=== PATIENT | male | born 1990 | race Caucasian/White ===

== ENCOUNTER → 2024-08-24 08:40 | Outpatient (CLI) | payer OTHER, SELFPAY ==
--- NOTE | 2024-08-24 08:43 | DI.CT.S_ITS ---
PROCEDURE: CT SINUS SCREEN WO CON INDICATIONS: Chronic pansinusitis. Current smokeless tobacco use TECHNIQUE: Noncontrast 3.0 mm axial images acquired from the frontal sinuses to the mid-sella, with coronal and sagittal reformats. For radiation dose reduction, the following was used: automated exposure control, adjustment of mA and/or kV according to patient size. COMPARISON: None. FINDINGS: Maxillary Sinuses: Right maxillary sinus mucosal thickening measures up to 5 mm. No osseous remodeling. Ethmoid Air Cells: Mild mucosal thickening in a posterior right ethmoid air cell. Remainder of the air cells clear. No remodeling. Sphenoid Sinuses: No bony remodeling or destruction. Sinuses are clear. Frontal Sinuses: No bony remodeling or destruction. Sinuses are clear. Ostiomeatal Complexes: Ostiomeatal complexes are patent. No Annmarie cells. Miscellaneous: Visualized intra-orbital contents are normal. No loulou bullosa or paradoxical turbinate curvature. No nasal septal deviation. Focal foreign body between the maxillary alveolar ridge and upper lip centrally consistent with given history of current smokeless tobacco use IMPRESSION: Mild right maxillary sinus mucosal thickening. No osseous remodeling throughout the exam. Approved by: Tyler Karimi M.D. on 08/24/2024 at 16:59
== END ==
PROVIDERS: Referring Provider Otolaryngology; Visit Provider Otolaryngology
DX: J01.41 Acute recurrent pansinusitis (principal); J32.4 Chronic pansinusitis; R44.8 Other symptoms and signs involving general sensations and perceptions
CPT/HCPCS: 70486

== ENCOUNTER 2024-09-11 10:56 | Day surgery (SDC) | payer OTHER, SELFPAY ==
[2024-08-31 15:04] VITALS: BMI 29.2
[2024-09-11] VITALS (9 sets, daily range): BP systolic 122–148; BP diastolic 76–109; PULSE 68–90; RESP 9–19; TEMP 36.1–36.4; O2SAT 94–99; BMI 28.3
[2024-09-11] MEDS: OXYMETAZOLINE NASAL SPRAY 30 ML 2 SPRAYS NASAL ×2 (11:14→13:06)
[2024-09-11] MEDS: SCOPOLAMINE 1 PATCH TOP (11:16)
[2024-09-11] MEDS: LACTATED RINGERS 1,000 ML 42 ML IV (11:32)
[2024-09-11] MEDS: FAMOTIDINE 20 MG/2 ML VIAL IV (11:32)
--- NOTE | 2024-09-11 12:13 | P.OP_ITS ---
Operative Date/Time/Diagnoses Date of procedure: 09/11/24 Time of procedure: 13:49 Pre-op diagnosis: Nasal airway obstruction, septal deviation, inferior turbinate hypertrophy, PHUONG Post-op diagnosis: same Procedure & Clinicians Procedure: 1. Septoplasty 2. Bilateral inferior turbinate reduction via intramural cautery Same procedure as scheduled: Yes Indications: 34 Year old with the above diagnoses incompletely managed with medical therapy presents for the above procedure. Following discussion of the material risks benefits complications and alternatives, the patient elected to proceed. Surgeon: Tristen Issa Click Yes if Unassisted: Yes Anesthesia Type: General and Local Operative Notes Findings: Right 2 to 3+ septal deviation, bony and cartilaginous sharp spur extending low anterior to high posterior, partial right flap tear in that area only, left flap intact. 1-2+ left superior anterior cartilaginous septal deviation, improved. Evzs-[id number]-zawc-right inferior turbinate hypertrophy. Estimated Blood Loss (mL): 20 Procedure in detail: Following identification and confirmation of consent as well as preoperative Afrin nasal spray, the patient was brought to the operating room suite and placed in the supine position. General endotracheal anesthesia was administered. I infiltrated the septum widely bilaterally with 1% lidocaine 1 100,000 epinephrine followed by temporary packing with cotton with Afrin and 4% lidocaine. Following sterile prep and drape, the packing was removed and I performed a right william-transfixion incision, elevated the right mucoperichondrial and mucoperiosteal flap. I disarticulated near the bony/cartilaginous junction and elevated the left mucoperiosteal flap. Deviated portions of the perpendicular plate of the ethmoid and vomer were resected. The residual quadrilateral cartilage was further straightened by trimming it inferiorly as well as reducing the maxillary crest. A 2 mm strip of cartilage paralleling the residual 1 cm dorsal and caudal strut was resected to further straighten the quadrilateral cartilage. The hemitransfixion incision was closed with interrupted 5 0 chromic followed by a running 4 0 plain gut mattress suture to reapproximate the septal flaps. At case completion, Corbett air channel silastic splints were placed bilaterally, sutured anteriorly with a single 4 0 nylon. The head of each inferior turbinate had been previously infiltrated with additional local anesthetic and a 25 gauge spinal needle was used to impale the length of the turbinate, with cautery on a setting of 15 activated on slow withdrawal over 2 passes on the left, a single pass on the smaller right inferior turbinate. The turbinates were then outfractured. The procedure completed, sponge and needle counts were correct and the patient was extubated in the operating room and taken to recovery room in stable condition without known complication. Postoperative care: Nasal saline every hour while awake, Vaseline or Polysporin to the nostrils at all times, begin irrigations t.i.d. beginning pod 1. Humidifier at the bedside blowing on the face. Tylenol alternating with Advil for pain control, oxycodone if necessary for breakthrough pain. Complications: none Post-operative Condition: stable Disposition: same day surgery Plan for aftercare: Nasal saline every hour while awake, begin irrigations t.i.d. tomorrow if desired. Polysporin or Vaseline to the nostrils at all times, Tylenol alternating with Advil for pain control, oxycodone for breakthrough pain. Elevate head of bed, no nose blowing, no straining for 2 weeks. Ice directly under the nose on the upper lip has tolerated 24-48 hours at a minimum. Follow- up in 1 week for nasal splint removal.
--- NOTE | 2024-09-11 12:13 | PM.PREOP ---
Pre-operative Note Interval Note History & Physical reviewed/Exam performed by Physician: Yes Changes to H&P: No
[2024-09-11] MEDS: ACETAMINOPHEN IV 1,000 MG/100 ML VIAL 400 MG IV (13:02)
[2024-09-11] MEDS: LIDOCAINE 4% SOLN 50 ML 20 ML TOP (13:07)
[2024-09-11] MEDS: LIDOCAINE 1% W/EPI 10ML 20 ML INJ (13:09)
[2024-09-11] MEDS: BACITRACIN 28 GM OINT 1 APPLIC TOP (13:09)
--- NOTE | 2024-09-11 13:25 | SUR.OPER ---
Supine on padded OR bed, head on gel doughnut , arms padded and tucked at sides, legs uncrossed, safety belt at thigh, tape over blanket over lower legs .
[2024-09-11] MEDS: hydrOXYzine 50 MG/ML INJ IM (14:33)
[2024-09-11] MEDS: OXYCODONE IR 5 MG TABLET PO ×2 (14:33→15:01)
== END 2024-09-11 15:18 | disposition home or self-care (01) ==
PROVIDERS: Referring Provider Otolaryngology; Visit Provider Otolaryngology
PROC: (CPT 30520; principal; 2024-09-11 12:00)
DX: J34.2 Deviated nasal septum (principal); J34.3 Hypertrophy of nasal turbinates; J34.89 Other specified disorders of nose and nasal sinuses; G47.33 Obstructive sleep apnea (adult) (pediatric)
CPT/HCPCS: 30520; 30802; J0131; J0330; J1100; J2250; J2405; J2704; J3010; J3410

== ENCOUNTER 2024-09-13 02:06 | Emergency (ER) | payer OTHER, SELFPAY ==
[2024-09-13 02:14] VITALS: BP 124/81; PULSE 123; RESP 20; TEMP 37.7; O2SAT 100; BMI 27.3
--- NOTE | 2024-09-13 02:29 | ED.GENADULT ---
HPI - General Adult General Chief complaint: Recheck/Abnormal Lab/Rx Stated complaint: Post Op Problem, Fever Time Seen by Provider: 09/13/24 02:10 History of Present Illness HPI narrative: 34-year-old male had septoplasty surgery yesterday by local name plate stamper Dr. Issa, completion of the procedure about 2:00 p.m., has been at home taking oxycodone, has increasing headache and feeling feverish. No neck pain or stiffness. No photophobia. Increasing facial pain and swelling. You apparently called the on-call name plate stamper who advised evaluation in the emergency department. Related Data Home Medications Medication Instructions Recorded Confirmed cholecalciferol (vitamin D3) 25 25 mcg PO DAILY 08/31/24 09/11/24 mcg (1,000 unit) capsule (Vitamin D3) Previous Rx's Medication Instructions Recorded amoxicillin 875 mg-potassium 1 tab PO BID #20 tabs 09/13/24 clavulanate 125 mg tablet Allergies Allergy/AdvReac Type Severity Reaction Status Date / Time No Known Drug Allergies Allergy Verified 09/11/24 11:09 Patient History Medical History (Updated 09/13/24 @ 04:12 by Nakul Bajwa MD) Recurrent pansinusitis PHUONG (obstructive sleep apnea) Surgical History (Updated 09/13/24 @ 04:12 by Nakul Bajwa MD) Hx of vasectomy (2022) Social History household members: spouse Smoking Status: Former smoker alcohol intake: current Exam Narrative Exam Narrative: GENERAL: Well-developed patient, in mild distress. HEAD: Atraumatic. Normocephalic. EYES: Pupils equal round and reactive. Extraocular motions intact. No scleral icterus. No injection or drainage. ENT: Inferonasal tape strip in place without bleeding saturation, nasal pledgets in place. Nasal swelling noted. Throat without erythema, tonsillar hypertrophy or exudate. Airway patent. NECK: Trachea midline. Non tender CARDIOVASCULAR: Regular rate and rhythm without murmurs, gallops, or rubs. RESPIRATORY: Clear to auscultation. Breath sounds equal bilaterally. No wheezes, rales, or rhonchi. GASTROINTESTINAL: Abdomen soft, non-tender, nondistended. EXTREMITIES: No edema or joint tenderness. BACK: Nontender without deformity or crepitance. No flank tenderness. NEURO: AOx3. Motor functions grossly nonfocal SKIN: No rash or erythema of visible areas Initial Vital Signs Initial Vital Signs: Vital Signs Temperature 99.8 F H 09/13/24 02:14 Pulse Rate 123 H 09/13/24 02:14 Respiratory Rate 20 09/13/24 02:14 Blood Pressure 124/81 09/13/24 02:14 Pulse Oximetry 100 09/13/24 02:14 Oxygen Delivery Method Room Air 09/13/24 02:14 Course Orders Ordered: ED Orders 09/13/24 02:38 CT sinus w con Stat CBC Auto Diff [Complete Blood Count AUTO DIFF] Stat CMP [Comprehensive Metabolic Panel] Stat Lactate (Lactic Acid) Stat 09/13/24 02:39 CT head/brain w con Stat 09/13/24 03:27 Blood Culture Stat Discontinued Medications Hydromorphone HCl (Hydromorphone 0.5 Mg Inj) 0.5 mg IV NOW ONE Stop: 09/13/24 03:38 Last Admin: 09/13/24 03:45 Dose: 0.5 mg Documented By: JOSELUIS Sodium Chloride (Normal Saline 0.9%) 1,000 mls @ 1,000 mls/hr IV BOLUS ONE Stop: 09/13/24 03:40 Last Infusion: 09/13/24 04:15 Dose: Infused Documented By: Admin: 09/13/24 02:53 Dose: 1,000 mls/hr Documented By: JOSELUIS Ceftriaxone Sodium 1,000 mg/ (Sodium Chloride) 100 mls @ 200 mls/hr IV NOW ONE Stop: 09/13/24 03:28 Last Infusion: 09/13/24 04:15 Dose: Infused Documented By: Admin: 09/13/24 03:32 Dose: 200 mls/hr Documented By: JOSELUIS Ondansetron HCl (Ondansetron 4 Mg/2 Ml Inj) 4 mg IV NOW ONE Stop: 09/13/24 03:38 Last Admin: 09/13/24 03:44 Dose: 4 mg Documented By: JOSELUIS Vital Signs Vital signs: Vital Signs - 8 hr 09/13/24 02:14 09/13/24 02:57 09/13/24 03:00 Temperature 99.8 F H 101.3 F H Pulse Rate 123 H 105 H 103 H Respiratory Rate 20 22 17 Blood Pressure 124/81 119/79 Pulse Oximetry 100 98 99 Oxygen Delivery Method Room Air Room Air 09/13/24 03:00 09/13/24 03:30 09/13/24 03:41 Temperature Pulse Rate 110 H Respiratory Rate 16 Blood Pressure 131/80 130/77 Pulse Oximetry 98 Oxygen Delivery Method 09/13/24 03:41 09/13/24 04:00 09/13/24 04:00 Temperature Pulse Rate 110 H 114 H Respiratory Rate 18 18 Blood Pressure 132/77 Pulse Oximetry 97 95 Oxygen Delivery Method Medical Decision Making Lab Data Lab results reviewed: Yes I reviewed the patient's lab results. Lab results narrative: White blood cell count 44012, hemoglobin 14.7, platelets adequate. Glucose 154. Renal function normal. Electrolytes unremarkable. T bili 1.4 slight elevation, other liver functions unremarkable. 09/13/24 02:38 09/13/24 02:38 Labs: Lab Results 09/13/24 Range/Units 02:38 WBC 11.8 H (4.5-11.0) X10^3/uL RBC 4.99 (4.5-5.9) X10^6/uL Hgb 14.7 (13.5-17.5) g/dL Hct 42.9 (41-53) % MCV 85.9 (80-100) fL MCH 29.5 (26-34) PG MCHC 34.3 (30-36) % RDW 13.3 (11.6-14.8) % Plt Count 222 (150-400) X10^3/uL Neut % (Auto) 90.4 H (50-75) % Lymph % (Auto) 3.9 L (25-40) % Johnson % (Auto) 5.4 (3-14) % Eos % (Auto) 0.1 L (2-4) % Baso % (Auto) 0.2 (0-2) % Neut # (Auto) 91444 H (2107-7557) /uL Lymph # (Auto) 500 L (5753-7510) /uL Johnson # (Auto) 600 (0-900) /uL Eos # (Auto) 0 (0-450) /uL Baso # (Auto) 0 (0-100) /uL Sodium 141 (137-145) mmol/L Potassium 3.9 (3.4-5.1) mmol/L Chloride 104 (98-107) mmol/L Carbon Dioxide 27 (22-32) mmol/L BUN 11 (9-20) mg/dL Creatinine 1.13 (0.66-1.25) mg/dL Estimated GFR > 60 (>60) mL/min BUN/Creatinine Ratio 9.7 (6-22) Glucose 154 H (70-99) mg/dL Lactate 1.8 (0.7-2.1) mmol/L Calcium 8.8 (8.4-10.2) mg/dL Total Bilirubin 1.4 H (0.2-1.3) mg/dL AST 33 (17-59) IU/L ALT 26 (<50) IU/L Alkaline Phosphatase 64 (38-126) U/L Total Protein 7.2 (6.3-8.2) g/dL Albumin 4.7 (3.5-5.0) g/dL Globulin 2.5 (1.7-4.1) g/dL Albumin/Globulin Ratio 1.9 (1.0-2.8) MDM Narrative Medical decision making narrative: 34-year-old male status post nasal septoplasty yesterday with increasing headache and facial pain, feeling feverish, was referred in for further evaluation by otolaryngology. Reported fever and tachycardia. Increased heart rate noted. IV fluids, labs pending. CT head and sinus with IV contrast ordered. CT head study with IV contrast. Impressions: ?No acute intracranial findings.In text there is mention of absence of dural venous thrombosis. See tele radiology report. CT sinus study with IV contrast. Impressions: ?No abscess. Post surgical changes as detailed, with mild mucoperiosteal thickening of the ethmoid air cells and trace fluid within the maxillary sinuses.? See tele radiology report IV ceftriaxone given for sinusitis coverage. For discharge patient on Augmentin, prescription sent to his pharmacy. Patient advised to call the office of his name plate stamper Dr. Issa tomorrow Saturday during regular hours. Return precautions discussed. Home with family. Discharge Plan Departure Patient Disposition: Home Clinical Impression: Sinusitis, Status post nasal septoplasty Activity Restrictions/Additional Instructions: History of recent sinus septoplasty and turbinate procedure. Subsequent fevers and increasing headache pain. Fever noted on triage. CT head brain showed no intracranial process of concern, possible ethmoid sinusitis changes. CT sinus study showed no abscess or active bleeding, possible ethmoid sinusitis changes. IV ceftriaxone antibiotic given for possible sinusitis. We will give prescription for Augmentin antibiotic for treatment of possible sinusitis. It is possible that the ethmoid changes are only postoperative changes, might not necessarily represent acute sinus infection, however you do seemed to have increasing headache in sinus pain, with objective fever, that is not otherwise explained. We will cover for sinusitis with antibiotics for now. Please contact your otolaryngology surgeon on Saturday during regular hours to see if earlier follow up appointment would be warranted. Return earlier to this/nearest emergency department for any change worsening symptoms or any concerns prior. Prescriptions: New amoxicillin-pot clavulanate 875-125 mg tablet 1 tab PO BID Qty: 20 0RF No Action cholecalciferol (vitamin D3) [Vitamin D3] 25 mcg (1,000 unit) Capsule 25 mcg PO DAILY Referrals: ProviderMiya [Primary Care Provider] - Stand Alone Forms: Patient Portal/API/Survey
--- NOTE | 2024-09-13 02:38 | DI.CT.S_ITS ---
PROCEDURE: CT SINUS W CON INDICATIONS: post septoplasty, fevers, tachy TECHNIQUE: After the administration of intravenous contrast, 3.0 mm axial images acquired from the frontal sinuses to the mid-sella, with coronal and sagittal reformats. For radiation dose reduction, the following was used: automated exposure control, adjustment of mA and/or kV according to patient size. COMPARISON: None. FINDINGS: Image quality: Excellent. Maxillary Sinuses: Trace dependent fluid levels in both maxillary sinuses, symmetric, presumably postoperative. Minor mucoperiosteal thickening inferiorly in both maxillary sinuses. No bony abnormality. Ethmoid Air Cells: Mild mucoperiosteal thickening anteriorly and centrally. No bony destruction or abscess formation. Sphenoid Sinuses: No bony remodeling or destruction. Sinuses are clear. Frontal Sinuses: No bony remodeling or destruction. Sinuses are clear. Ostiomeatal Complexes: Ostiomeatal complexes are patent. No Annmarie cells. Miscellaneous: Mild diffuse soft tissue thickening in the nasal passages. Splint material in place around the septum. No evidence of fluid collection. Mild thickening of the adenoid soft tissues. No significant hyperemia. No dependent fluid collections. Parapharyngeal fat planes are normally preserved. Opacified vasculature appears normal and symmetric. IMPRESSION: Post septoplasty with expected changes and no evidence of postsurgical complication or abscess formation. Final interpretation is concordant with preliminary report. Dictated by: Maty Salazar M.D. on 09/13/2024 at 7:04 Approved by: Maty Salazar M.D. on 09/13/2024 at 7:08
--- NOTE | 2024-09-13 02:39 | DI.CT.S_ITS ---
PROCEDURE: CT HEAD/BRAIN W CON INDICATIONS: septoplasty, fever, tachy, eval for abscess TECHNIQUE: 4.5 mm thick angled axial sections acquired from the foramen magnum to the vertex after the administration of intravenous contrast, with coronal and sagittal reformats. For radiation dose reduction, the following was used: automated exposure control, adjustment of mA and/or kV according to patient size. COMPARISON: None. FINDINGS: Image quality: Excellent. CSF Spaces: Basal cisterns are patent. No extra-axial fluid collections. Ventricles are normal in size and shape. Brain: No midline shift. No intracranial bleeds or masses. No abnormal intracranial enhancement. Hamilton-white interface appears normal. Skull and face: Calvarium and visualized facial bones appear intact, without suspicious lesions. Sinuses: Trace fluid dependently in the maxillary sinuses. Mucoperiosteal thickening in the ethmoid air cells.. Nasal septum splint material in place. IMPRESSION: No CT evidence of acute intracranial process. Final interpretation is concordant with preliminary report. Dictated by: Maty Salazar M.D. on 09/13/2024 at 7:02 Approved by: Maty Salazar M.D. on 09/13/2024 at 7:04
[2024-09-13 02:50] LABS: Add Manual Diff / Slide Review NO; Basophils Absolute Auto 0 /uL (0-100); Basophils Percent Auto 0.2 % (0-2); Eosinophils Absolute Auto 0 /uL (0-450); Eosinophils Percent Auto 0.1 % (2-4); Hematocrit 42.9 % (41-53); Hemoglobin 14.7 g/dL (13.5-17.5); Lymphocytes Absolute Auto 500 /uL (1100-4500); Lymphocytes Percent Auto 3.9 % (25-40); Mean Corpuscular HGB Conc 34.3 % (30-36); Mean Corpuscular Hemoglobin 29.5 PG (26-34); Mean Corpuscular Volume 85.9 fL (80-100); Monocytes Absolute Auto 600 /uL (0-900); Monocytes Percent Auto 5.4 % (3-14); Neutrophils Absolute Auto 10700 /uL (1500-7000); Neutrophils Percent Auto 90.4 % (50-75); Platelet Count 222 X10^3/uL (150-400); Red Blood Cell Count 4.99 X10^6/uL (4.5-5.9); Red Cell Distribution Width 13.3 % (11.6-14.8); White Blood Cell Count 11.8 X10^3/uL (4.5-11.0)
[2024-09-13] MEDS: SODIUM CHLORIDE 0.9% 1,000 ML 1000 ML IV (02:53)
[2024-09-13 02:57] VITALS: BP 119/79; PULSE 105; RESP 22; TEMP 38.5; O2SAT 98
[2024-09-13 03:00] VITALS: BP 131/80; PULSE 103; RESP 17; O2SAT 99
[2024-09-13 03:02] LABS: Alanine Aminotransferase 26 IU/L (<50); Albumin 4.7 g/dL (3.5-5.0); Albumin Globulin Ratio 1.9 (1.0-2.8); Alkaline Phosphatase 64 U/L (38-126); Aspartate Aminotransferase 33 IU/L (17-59); BUN Creatinine Ratio 9.7 (6-22); Bilirubin Total 1.4 mg/dL (0.2-1.3); Blood Urea Nitrogen 11 mg/dL (9-20); Calcium 8.8 mg/dL (8.4-10.2); Carbon Dioxide 27 mmol/L (22-32); Chloride 104 mmol/L (98-107); Estimated Glomerular Filt Rate > 60 mL/min (>60); Globulin 2.5 g/dL (1.7-4.1); Glucose 154 mg/dL (70-99); HEMOLYSIS < 15 (0-50); Lactate (Lactic Acid) 1.8 mmol/L (0.7-2.1); Potassium 3.9 mmol/L (3.4-5.1); Sodium 141 mmol/L (137-145); Total Protein 7.2 g/dL (6.3-8.2)
[2024-09-13 03:30] VITALS: PULSE 110; RESP 16; O2SAT 98
[2024-09-13] MEDS: cefTRIAXone 1,000 MG in SODIUM CHLORIDE 0.9% 100 ML 200 MG IV (03:32)
[2024-09-13 03:41] VITALS: BP 130/77; PULSE 110; RESP 18; O2SAT 97
[2024-09-13] MEDS: ONDANSETRON 4 MG/2 ML INJ IV (03:44)
[2024-09-13] MEDS: HYDROMORPHONE 0.5 MG INJ IV (03:45)
[2024-09-13 04:00] VITALS: BP 132/77; PULSE 114; RESP 18; O2SAT 95
== END 2024-09-13 04:31 | disposition home or self-care (01) ==
PROVIDERS: Emergency Provider Emergency Medicine
DX: J32.9 Chronic sinusitis, unspecified (principal); R00.0 Tachycardia, unspecified; Z98.890 Other specified postprocedural states; Z87.891 Personal history of nicotine dependence
CPT/HCPCS: 36415; 70460; 70487; 80053; 83605; 85025; 87040; 87077; 87186; 96361; 96365; 96375; 99284; J0696; J1171; J2405; Q9967

== ENCOUNTER 2024-09-14 10:58 | Emergency (ER) | payer OTHER, SELFPAY ==
[2024-09-14] VITALS (7 sets, daily range): BP systolic 119–131; BP diastolic 77–91; PULSE 73–101; RESP 10–17; TEMP 36.6; O2SAT 93–98; BMI 27.3
--- NOTE | 2024-09-14 11:09 | ED.URI ---
HPI - URI/Sore Throat General Chief Complaint: Recheck/Abnormal Lab/Rx Stated Complaint: Sinus pain after Surgery x 3 days Time Seen by Provider: 09/14/24 11:07 History of Present Illness HPI Narrative: Patient is a 34-year-old male had septoplasty on September [address] Issa was seen and evaluated here on the night of September all tense for increased pain. He was taking some oxycodone he had a white count of 11 has 1 of 2 positive blood cultures. Still having fever body aches and chills. Generally not feeling well. He did call ENT office who recommended he come to the ED. he actually had positive blood cultures less than 24 hours after surgery. Related Data Home Medications Medication Instructions Recorded Confirmed cholecalciferol (vitamin D3) 25 25 mcg PO DAILY 08/31/24 09/11/24 mcg (1,000 unit) capsule (Vitamin D3) Previous Rx's Medication Instructions Recorded amoxicillin 875 mg-potassium 1 tab PO BID #20 tabs 09/13/24 clavulanate 125 mg tablet hydrocodone 5 mg-acetaminophen 325 1 tab PO Q6H PRN pain #10 tabs 09/14/24 mg tablet Allergies Allergy/AdvReac Type Severity Reaction Status Date / Time No Known Drug Allergies Allergy Verified 09/11/24 11:09 Patient History Medical History Recurrent pansinusitis PHUONG (obstructive sleep apnea) Surgical History Hx of vasectomy (2022) Social History household members: spouse alcohol intake: current tobacco type: cigarettes Alcohol type: beer and wine Exam Initial Vital Signs Initial Vital Signs: Vital Signs Pulse Rate 101 H 09/14/24 11:09 Blood Pressure 131/91 H 09/14/24 11:09 Pulse Oximetry 97 09/14/24 11:09 Alert nontoxic well-appearing 34-year-old male HEENT: Head atraumatic,EOMI, pupils reactive, face symmetric, [moist] mucous membranes [Tympanic membranes visualized, no erythema or bulging, no hemotympanum CARDIOVASCULAR: Regular rate and rhythm without murmurs, rubs or gallops. RESPIRATORY: Breath sounds equal bilaterally, no wheezes rales or rhonchi. EXTREMITIES: Normal range of motion, no clubbing or edema. Neurovascularly intact NEUROLOGICAL: Alert and oriented x4.Normal gait and speech. SKIN: Warm, dry, no laceration, no petechiae, no rashes or lesions. Course Orders Ordered: ED Orders 09/14/24 11:24 Blood Culture Stat Complete Blood Count AUTO DIFF Stat Comprehensive Metabolic Panel Stat Lactate (Lactic Acid) Stat Lipase Stat PTT Partial Thromboplastin Benjy Stat Procalcitonin Stat Prothrombin Time INR Stat Discontinued Medications Dexamethasone (Dexamethasone 10 Mg/Ml Vial) 10 mg IV NOW ONE Stop: 09/14/24 12:05 Last Admin: 09/14/24 12:42 Dose: 10 mg Documented By: TOVA Sodium Chloride (Normal Saline 0.9%) 1,000 mls @ 1,000 mls/hr IV BOLUS ONE Stop: 09/14/24 12:19 Last Infusion: 09/14/24 12:37 Dose: Infused Documented By: Admin: 09/14/24 11:37 Dose: 1,000 mls/hr Documented By: TOVA Ceftriaxone Sodium 1,000 mg/ (Sodium Chloride) 100 mls @ 200 mls/hr IV NOW ONE Stop: 09/14/24 11:41 Last Infusion: 09/14/24 12:37 Dose: Infused Documented By: Admin: 09/14/24 11:49 Dose: 200 mls/hr Documented By: TOVA Ketorolac Tromethamine (Ketorolac 30 Mg/Ml Vial) 15 mg IV NOW ONE Stop: 09/14/24 13:13 Last Admin: 09/14/24 13:21 Dose: 15 mg Documented By: TOVA Ondansetron HCl (Ondansetron 4 Mg/2 Ml Inj) 4 mg IV NOW PRN PRN Reason: Nausea And Vomiting Ondansetron HCl (Ondansetron 4 Mg Odt) 4 mg PO NOW PRN PRN Reason: Nausea And Vomiting Vital Signs Vital signs: Vital Signs - 8 hr 09/14/24 11:09 09/14/24 11:09 09/14/24 11:10 Temperature 98 F Pulse Rate 101 H 95 H Respiratory Rate 17 Blood Pressure 131/91 H 131/91 H Pulse Oximetry 97 98 Oxygen Delivery Method Room Air 09/14/24 11:30 09/14/24 11:36 09/14/24 11:36 Temperature Pulse Rate 81 73 Respiratory Rate 10 L Blood Pressure 119/77 Pulse Oximetry 93 96 Oxygen Delivery Method 09/14/24 12:00 09/14/24 12:00 09/14/24 12:30 Temperature Pulse Rate 80 83 Respiratory Rate 13 13 Blood Pressure 126/89 Pulse Oximetry 97 97 Oxygen Delivery Method 09/14/24 12:30 09/14/24 13:00 Temperature Pulse Rate 89 Respiratory Rate 15 Blood Pressure 119/86 Pulse Oximetry 98 Oxygen Delivery Method MDM - URI/Sore Throat Lab Data 09/14/24 11:24 09/14/24 11:24 Labs: Lab Results 09/14/24 Range/Units 11:24 WBC 8.5 (4.5-11.0) X10^3/uL RBC 4.87 (4.5-5.9) X10^6/uL Hgb 14.3 (13.5-17.5) g/dL Hct 41.3 (41-53) % MCV 84.8 (80-100) fL MCH 29.4 (26-34) PG MCHC 34.7 (30-36) % RDW 13.2 (11.6-14.8) % Plt Count 171 (150-400) X10^3/uL Neut % (Auto) 84.4 H (50-75) % Lymph % (Auto) 8.9 L (25-40) % [place] % (Auto) 6.1 (3-14) % Eos % (Auto) 0.2 L (2-4) % Baso % (Auto) 0.4 (0-2) % Neut # (Auto) 7200 H (2890-4678) /uL Lymph # (Auto) 800 L (1910-9186) /uL [place] # (Auto) 500 (0-900) /uL Eos # (Auto) 0 (0-450) /uL Baso # (Auto) 0 (0-100) /uL PT 12.8 H (9.4-12.5) SECONDS INR 1.1 (0.9-1.3) APTT 37 H (25.1-36.5) SECONDS Sodium 137 (137-145) mmol/L Potassium 3.5 (3.4-5.1) mmol/L Chloride 104 (98-107) mmol/L Carbon Dioxide 23 (22-32) mmol/L BUN 13 (9-20) mg/dL Creatinine 1.00 (0.66-1.25) mg/dL Estimated GFR > 60 (>60) mL/min BUN/Creatinine Ratio 13.0 (6-22) Glucose 114 H (70-99) mg/dL Lactate 0.6 L (0.7-2.1) mmol/L Calcium 8.8 (8.4-10.2) mg/dL Total Bilirubin 1.8 H (0.2-1.3) mg/dL AST 34 (17-59) IU/L ALT 23 (<50) IU/L Alkaline Phosphatase 56 (38-126) U/L Total Protein 7.3 (6.3-8.2) g/dL Albumin 4.5 (3.5-5.0) g/dL Globulin 2.8 (1.7-4.1) g/dL Albumin/Globulin Ratio 1.6 (1.0-2.8) Lipase 51 (23-300) U/L Procalcitonin 0.318 (<0.5) ng/mL MDM Narrative Medical decision making narrative: Patient 34-year-old male who had septoplasty done on September 11 with 1 of 2 Gram-positive blood cultures presenting today with ongoing fever chills and pain. He overall appears well nontoxic. Blood work has been reviewed WBCs 8.5 lactate 0.6 Procalcitonin 0.318 Electrolytes within normal limits no anemia Patient overall appears well nontoxic. I think abnormal to have postoperative bacteremia with fever and positive got blood cultures less than 24 hours after procedure. Possible other viral etiology. Nonetheless patient received IV fluids and a dose of Rocephin here in the ED. he also got a dose of dexamethasone to help with swelling Patient was feeling a little bit better. He was already on p.o. Augmentin recommend that he finished that antibiotic course. 12:05Dr. Luis Manuel ENT updated on patient's symptoms test results discussion about benefits of dexamethasone, he was happy to see patient in the office today if patient needed to. We will otherwise follow up with patient on another date Discussed with patient follow up with the ENT continue antibiotics he understands this can be painful. But overall no evidence of sepsis blood work reassuring repeat blood cultures pending at this time no need for admission Discharge Plan Departure Patient Disposition: Home Clinical Impression: Sinusitis, Status post nasal septoplasty Activity Restrictions/Additional Instructions: *You have been diagnosed with sinusitis *What to do: This time continue all care from Dr. Issa. Stay hydrated I expect that you start feeling better in the next 2-3 days *Continue to take medications as directed Fleming 1 tablet every 6 hours only if needed for severe pain or help with sleep (this has Tylenol in it, do not take more than 1000 mg of Tylenol at a time) Continue antibiotics as prescribed *Follow up with your primary care provider in 2-3 days or call [phone] Dr. Issa, as scheduled *Return to ER if you should have excessive bleeding increased pain or any new, worsening or concerning symptoms CONTROLLED SUBSTANCE DISCHARGE (Narcotoic/benzodiazepine/Flexeril/Phenergan) 1. You have been prescribed narcotic medications, it does have acetaminophen/Tylenol/paracetamol in it, DO NOT TAKE MORE THAN 4,00mg in 24 hours of Tylenol. TRAMADOL DOES NOT CONTAIN TYLENOL 2. Please understand that we cannot provide further refills of narcotics, benzodiazepines or controlled substances through the ED and her pain management will need to be through your provider. 3. While on these medications you cannot drive or operate heavy machinery. 4. You cannot sign legal documents or perform any duties such as this. 5. As long as you're taking opiate pain medications he should also be taking a stool softener such as Colace, Dulcolax, MiraLAX or prune juice, to help avoid constipation. Prescriptions: New hydrocodone-acetaminophen 5-325 mg tablet 1 tab PO Q6H PRN (Reason: pain) Qty: 10 0RF No Action cholecalciferol (vitamin D3) [Vitamin D3] 25 mcg (1,000 unit) Capsule 25 mcg PO DAILY amoxicillin-pot clavulanate 875-125 mg tablet 1 tab PO BID Qty: 20 0RF Referrals: ProviderMiya [Primary Care Provider] - Stand Alone Forms: Patient Portal/API/Survey
[2024-09-14 11:34] LABS: Add Manual Diff / Slide Review NO; Basophils Absolute Auto 0 /uL (0-100); Basophils Percent Auto 0.4 % (0-2); Eosinophils Absolute Auto 0 /uL (0-450); Eosinophils Percent Auto 0.2 % (2-4); Hematocrit 41.3 % (41-53); Hemoglobin 14.3 g/dL (13.5-17.5); Lymphocytes Absolute Auto 800 /uL (1100-4500); Lymphocytes Percent Auto 8.9 % (25-40); Mean Corpuscular HGB Conc 34.7 % (30-36); Mean Corpuscular Hemoglobin 29.4 PG (26-34); Mean Corpuscular Volume 84.8 fL (80-100); Monocytes Absolute Auto 500 /uL (0-900); Monocytes Percent Auto 6.1 % (3-14); Neutrophils Absolute Auto 7200 /uL (1500-7000); Neutrophils Percent Auto 84.4 % (50-75); Platelet Count 171 X10^3/uL (150-400); Red Blood Cell Count 4.87 X10^6/uL (4.5-5.9); Red Cell Distribution Width 13.2 % (11.6-14.8); White Blood Cell Count 8.5 X10^3/uL (4.5-11.0)
[2024-09-14] MEDS: SODIUM CHLORIDE 0.9% 1,000 ML 1000 ML IV (11:37)
[2024-09-14 11:40] LABS: INR 1.1 (0.9-1.3); Prothrombin Time 12.8 SECONDS (9.4-12.5)
[2024-09-14 11:42] LABS: PTT Partial Thromboplastin Tim 37 SECONDS (25.1-36.5)
[2024-09-14 11:45] LABS: Lactate (Lactic Acid) 0.6 mmol/L (0.7-2.1)
[2024-09-14 11:46] LABS: Alanine Aminotransferase 23 IU/L (<50); Albumin 4.5 g/dL (3.5-5.0); Albumin Globulin Ratio 1.6 (1.0-2.8); Alkaline Phosphatase 56 U/L (38-126); Aspartate Aminotransferase 34 IU/L (17-59); Bilirubin Total 1.8 mg/dL (0.2-1.3); Blood Urea Nitrogen 13 mg/dL (9-20); Calcium 8.8 mg/dL (8.4-10.2); Carbon Dioxide 23 mmol/L (22-32); Chloride 104 mmol/L (98-107); Estimated Glomerular Filt Rate > 60 mL/min (>60); Globulin 2.8 g/dL (1.7-4.1); Glucose 114 mg/dL (70-99); HEMOLYSIS < 15 (0-50); Lipase 51 U/L (23-300); Potassium 3.5 mmol/L (3.4-5.1); Sodium 137 mmol/L (137-145); Total Protein 7.3 g/dL (6.3-8.2)
[2024-09-14] MEDS: cefTRIAXone 1,000 MG in SODIUM CHLORIDE 0.9% 100 ML 200 MG IV (11:49)
[2024-09-14 12:03] LABS: Procalcitonin 0.318 ng/mL (<0.5)
[2024-09-14] MEDS: DEXAMETHASONE 10 MG/ML VIAL IV (12:42)
[2024-09-14] MEDS: KETOROLAC 30 MG/ML VIAL 15 MG IV (13:21)
== END 2024-09-14 13:30 | disposition home or self-care (01) ==
PROVIDERS: Emergency Provider Emergency Medicine
DX: J32.9 Chronic sinusitis, unspecified (principal); Z98.890 Other specified postprocedural states
CPT/HCPCS: 36415; 80053; 83605; 83690; 84145; 85025; 85610; 85730; 87040; 96365; 96375; 99284; J0696; J1100; J1885